=== PATIENT | male | born 2000 | race Two or more races ===

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

== ENCOUNTER 2019-04-14 16:09 | Outpatient (CLI) | payer OTHER | END 2019-04-14 16:25 | disposition home or self-care (01) | LOC: RAD 16:09 | DX: M79.641 Pain in right hand (principal) ==

== ENCOUNTER 2025-06-28 20:16 | Emergency (ER) | payer OTHER ==
[~2025-06-28] VITALS: Ht 172.7 cm; Wt 62.1 kg
[2025-06-28] MEDS ORDERED: MORPHINE SULFATE 4 MG/ML VIAL IV ONE (21:30)
[2025-06-28] MEDS ORDERED: FAMOtidine 10 MG/ML (4ML VIAL) IV ONE (21:30)
[2025-06-28 22:15] LABS: BASO % 0.5 % (0.1-1.2); EOS # 0.02 (0.04-0.54); EOS % 0.2 % (0.7-7.0); LYMPH # 1.32 (1.18-3.74); LYMPH % 16.5 % (19.3-53.1); MEAN PLATELET VOLUME 10.20 fl (9.4-12.4); MONO # 0.63 (0.24-0.82); MONO % 7.9 % (4.7-12.5); NEUT # 5.99 (1.56-6.13); NEUT % 74.7 % (34.0-71.1); RED CELL DISTRIBUTION WIDTH 11.0 % (11.6-14.4)
== END 2025-06-28 23:11 | disposition home or self-care (01) ==
LOC: ER 20:16
PROVIDERS: General Practice
DX: N50.812 Left testicular pain (principal); N43.3 Hydrocele, unspecified